=== PATIENT | male | born 1975 | race Caucasian/White ===

== ENCOUNTER 2019-08-06 22:33 | Emergency (ER) | payer MEDICAID ==
[~2019-08-06] VITALS: Ht 177.8 cm; Wt 136.5 kg
[2019-08-07] MEDS ORDERED: MAGNESIUM/ALUMINUM HYDROXIDE/SIMETHICONE 30ML UDC PO ONE (00:15)
[2019-08-07 00:59] LABS: BASOPHILS % 0.5 % (0.0-2.0); EOSINOPHILS % 1.7 % (0.0-5.0); HEMOGLOBIN. 14.7 g/dL (14.0-18.0); MEAN CORPUSCULAR HEMOGLOBIN 25.2 pg (28.0-32.0); MEAN CORPUSCULAR VOLUME 75.4 fL (80.0-94.0); MEAN PLATELET VOLUME 9.7 fl (7.4-10.4); MONOCYTES % 6.9 % (2.0-8.0); NEUTROPHILS % 68.9 % (40.0-76.0); PLATELET 163 x1000/uL (130-400); RED BLOOD CELL COUNT 5.84 mill/uL (4.7-6.1)
[2019-08-07 01:04] LABS: CHLORIDE 109 mEq/L (98-107)
[2019-08-07 02:56] VITALS: BP 122/84
== END 2019-08-07 02:57 | disposition home or self-care (01) ==
LOC: ER 22:33
DX: K21.9 Gastro-esophageal reflux disease without esophagitis (principal)
CPT/HCPCS: 36415; 71045; 84484; 93005; 99284